=== PATIENT | male | born 1955 | race Caucasian/White ===

== ENCOUNTER 2019-06-12 07:08 | Emergency (ER) | payer MEDICAID ==
[~2019-06-12] VITALS: Ht 175.3 cm; Wt 68.0 kg
[2019-06-12 07:12] VITALS: BP 170/76
[2019-06-12] MEDS ORDERED: METHADONE HCL10 MG ORAL (07:12)
--- NOTE | 2019-06-12 07:12 | NUR ---
ED Nurse Note: Patient brought in by [facility] due to nausea and generalized weakness. Has a medical hx of HTN, hypercholesterolemia, lymphoma, stroke last 2013. As per patient he has been on methadone for almost a year and his PCP d/c his BP medications x7 months ago. Pt alert and oriented, verbally responsive. No SOB. Breathing even and unlabored. VSS.
--- NOTE | 2019-06-12 07:15 | NUR ---
ED Nurse Note: IV line established. Blood collected and sent to lab.
[2019-06-12] MEDS ORDERED: LIPITOR40 MG ORAL (07:36)
[2019-06-12 07:37] LABS: BASOPHILS % (AUTO) 0.8 % (0.0-2.0); EOSINOPHILS % (AUTO) 1.4 % (0.0-3.0); HEMATOCRIT 47.7 % (42.0-52.0); HEMOGLOBIN 15.4 G/DL (14.2-18.0); LYMPHOCYTES % (AUTO) 16.1 % (20.0-45.0); MEAN CORPUSCULAR VOLUME 84 FL (80-99); NEUTROPHILS % (AUTO) 76.7 % (45.0-75.0); PLATELET COUNT 172 K/UL (150-450); RED BLOOD COUNT 5.66 M/UL (4.70-6.10); RED CELL DISTRIBUTION WIDTH 15.4 % (11.6-14.8)
--- NOTE | 2019-06-12 07:39 | Emergency Room Report ---
History of Present Illness General Chief Complaint: Generalized Weakness Source: Patient Present Illness HPI This patient states that when he woke up early this morning he was feeling fatigued and nauseated. He states that he went to his usual methadone clinic appointment. 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 He states that he has been undergoing narcotic detox with the methadone clinic for about 1 year. He states there is been no recent changes in his methadone dosages. He states that he went to the methadone clinic this morning and did take his typical dose of methadone but began feeling worse while at the methadone clinic. He states he weaker and more fatigued and more nauseated while driving to the methadone clinic and while he was there. He states he did not vomit but he did dry heave. He states that he also felt lightheaded and that he could possibly "pass out." He denies pain. He did have a normal bowel movement this morning that was formed. He denies chest pain or shortness of breath. He denies recent illness. He denies fever or chills. He denies cough or congestion. He denies chest pain or shortness of breath. He denies dysuria or hematuria. He denies headache or neck pain. He admits to tobacco use but denies alcohol or illicit drug use. He has no other complaints. Allergies: Coded Allergies: No Known Allergies (Unverified , 06/12/19) Patient History Past Medical History: see triage record, HTN, CVA/TIA, other - Hx of lymphoma ( remission), HLP Social History: Reports: smoking; Denies: alcohol use, drug use Reviewed Nursing Documentation: PMH: Agreed; PSxH: Agreed Nursing Documentation-PM Past Medical History: No History, Except For Hx Hypertension: Yes Hx Cerebrovascular Accident: Yes - 2013 Review of Systems All Other Systems: negative except mentioned in HPI Physical Exam Vital Signs Date Time Temp Pulse Resp B/P (MAP) Pulse Ox O2 Delivery O2 Flow Rate FiO2 06/12/19 07:06 97.5 54 16 170/76 (107) 99 Room Air Sp02 EP Interpretation: reviewed, normal General Appearance: no apparent distress, alert, GCS 15, non-toxic Head: normocephalic, atraumatic Eyes: bilateral eye normal inspection, bilateral eye PERRL ENT: hearing grossly normal, normal pharynx, no angioedema, normal voice Neck: full range of motion, supple/symm/no masses Respiratory: chest non-tender, lungs clear, normal breath sounds, no respiratory distress, no retraction, no accessory muscle use, speaking full sentences Cardiovascular #1: regular rate, rhythm, no edema Gastrointestinal: normal bowel sounds, non tender, soft, non-distended, no guarding, no rebound Rectal: deferred Musculoskeletal: back normal, gait/station normal, normal range of motion, non- tender Neurologic: alert, oriented x3, responsive, motor strength/tone normal, sensory intact, speech normal Psychiatric: judgement/insight normal, memory normal, mood/affect normal, no suicidal/homicidal ideation Skin: no rash, normal color, warm/dry Medical Decision Making Diagnostic Impression: Primary Impression: Bradycardia Additional Impression: Symptomatic bradycardia ER Course This patient was found to have significant bradycardia. The patient's heart rate was in the low 40s during his ED course. Other work-up to include CBC, CMP , troponin and EKG showed no significant findings other than the bradycardia. Further discussion with the patient and he stated that he had never been told that he had bradycardia. He states he has not been on his blood pressure medications for approximately 6 months because his primary care physician took him off of his blood pressure medications. I offered to admit this patient for symptomatic bradycardia so that he could undergo further evaluation of his lightheadedness and weakness as there is a possibility he could have episodes of arrhythmia or profound bradycardia. However, the patient stated that he needed to go move his car from the methadone clinic and that this was of utmost importance to him. Patient is competent and alert and oriented x4 and able to make his own medical decisions. I did discuss the risks to include possible cardiac arrest. The patient indicated understanding and declined admission to the hospital. The patient left AGAINST MEDICAL ADVICE. Patient was educated that he could return after he deals with his situation with his car. He indicated understanding. Laboratory Tests Test 06/12/19 07:11 06/12/19 07:25 06/12/19 07:45 Urine Color Pale yellow Urine Appearance Clear Urine pH 7 (4.5-8.0) Urine Specific [place] 1.010 (1.005-1.035) Urine Protein Negative (NEGATIVE) Urine Glucose (UA) Negative (NEGATIVE) Urine Ketones Negative (NEGATIVE) Urine Blood Negative (NEGATIVE) Urine Nitrite Negative (NEGATIVE) Urine Bilirubin Negative (NEGATIVE) Urine Urobilinogen Normal MG/DL (0.0-1.0) Urine Leukocyte Esterase Negative (NEGATIVE) White Blood Count 10.0 K/UL (4.8-10.8) Red Blood Count 5.66 M/UL (4.70-6.10) Hemoglobin 15.4 G/DL (14.2-18.0) Hematocrit 47.7 % (42.0-52.0) Mean Corpuscular Volume 84 FL (80-99) Mean Corpuscular Hemoglobin 27.3 PG (27.0-31.0) Mean Corpuscular Hemoglobin Concent 32.4 G/DL (32.0-36.0) Red Cell Distribution Width 15.4 % (11.6-14.8) H Platelet Count 172 K/UL (150-450) Mean Platelet Volume 8.7 FL (6.5-10.1) Neutrophils (%) (Auto) 76.7 % (45.0-75.0) H Lymphocytes (%) (Auto) 16.1 % (20.0-45.0) L Monocytes (%) (Auto) 5.0 % (1.0-10.0) Eosinophils (%) (Auto) 1.4 % (0.0-3.0) Basophils (%) (Auto) 0.8 % (0.0-2.0) Sodium Level 138 MMOL/L (136-145) Potassium Level 3.7 MMOL/L (3.5-5.1) Chloride Level 101 MMOL/L (98-107) Carbon Dioxide Level 29 MMOL/L (21-32) Anion Gap 8 mmol/L (5-15) Blood Urea Nitrogen 16 mg/dL (7-18) Creatinine 0.8 MG/DL (0.55-1.30) Estimate Glomerular Filtration Rate > 60 mL/min (>60) Glucose Level 128 MG/DL (74-106) H Lactic Acid Level 1.20 mmol/L (0.4-2.0) Calcium Level 8.5 MG/DL (8.5-10.1) Magnesium Level 1.8 MG/DL (1.8-2.4) Total Bilirubin 0.5 MG/DL (0.2-1.0) Aspartate Amino Transferase (AST) 20 U/L (15-37) Alanine Aminotransferase (ALT) 23 U/L (12-78) Alkaline Phosphatase 128 U/L (46-116) H Total Creatine Kinase 101 U/L (26-308) Creatine Kinase MB 1.3 NG/ML (0.0-3.6) Creatine Kinase MB Relative Index 1.2 Troponin I 0.000 ng/mL (0.000-0.056) Total Protein 7.9 G/DL (6.4-8.2) Albumin 3.8 G/DL (3.4-5.0) Globulin 4.1 g/dL Albumin/Globulin Ratio 0.9 (1.0-2.7) L Urine Opiates Screen Pending Urine Barbiturates Screen Pending Phencyclidine (PCP) Screen Pending Urine Amphetamines Screen Pending Urine Benzodiazepines Screen Pending Urine Cocaine Screen Pending Urine Marijuana (THC) Screen Pending Microbiology Date/Time Source Procedure Growth Status 06/12/19 07:25 Nasal Nares - Final Complete 06/12/19 07:25 Nasal Nares - Final Complete EKG Diagnostic Results Rate: bradycardiac Rhythm: other - S.tammie ST Segments: no acute changes Rhythm Strip Diag. Results EP Interpretation: yes Rate: 40's Rhythm: NSR, no PVC's, no ectopy Chest X-Ray Diagnostic Results Chest X-Ray Diagnostic Results : Chest X-Ray Ordered: Yes # of Views/Limited/Complete: 1 View Indication: Other EP Interpretation: Yes Interpretation: no consolidation, no effusion, no pneumothorax, no acute cardiopulmonary disease Impression: No acute disease Electronically Signed by: Meena Julien DO Last Vital Signs Date Time Temp Pulse Resp B/P (MAP) Pulse Ox O2 Delivery O2 Flow Rate FiO2 06/12/19 07:12 97.5 48 16 170/76 99 Room Air Disposition: AGAINST MEDICAL ADVICE Condition: Stable Referrals: [facility],REFERR[facility] (PCP) Meena Julien DO Jun 12, 2019 07:39
--- NOTE | 2019-06-12 07:41 | NUR ---
ED Nurse Note: Xray done at bedside.
[2019-06-12] MEDS ORDERED: ASPIRIN81 MG ORAL (07:43)
[2019-06-12] MEDS ORDERED: PLAVIX75 MG ORAL (07:43)
[2019-06-12 07:49] LABS: ANION GAP 8 mmol/L (5-15); BLOOD UREA NITROGEN 16 mg/dL (7-18); CALCIUM 8.5 MG/DL (8.5-10.1); CARBON DIOXIDE 29 MMOL/L (21-32); CHLORIDE 101 MMOL/L (98-107); CREATININE 0.8 MG/DL (0.55-1.30); POTASSIUM 3.7 MMOL/L (3.5-5.1); SODIUM 138 MMOL/L (136-145)
[2019-06-12 07:59] LABS: APPEARANCE,URINE CLEAR; BILIRUBIN, URINE NEGATIVE (NEGATIVE); COLOR,URINE PALE YELLOW; GLUCOSE, URINE (UA) NEGATIVE (NEGATIVE); KETONES,URINE NEGATIVE (NEGATIVE); LEUKOCYTE ESTERASE ,URINE NEGATIVE (NEGATIVE); NITRITE,URINE NEGATIVE (NEGATIVE); PH,URINE 7 (4.5-8.0); PROTEIN,URINE NEGATIVE (NEGATIVE); UROBILINOGEN,URINE NORMAL MG/DL (0.0-1.0)
--- NOTE | 2019-06-12 08:00 | NUR ---
ED Nurse Note: Urine sent to lab.
[2019-06-12 08:02] LABS: ALANINE AMINOTRANSFERASE 23 U/L (12-78); ALBUMIN 3.8 G/DL (3.4-5.0); ALBUMIN/GLOBULIN RATIO 0.9 (1.0-2.7); ALKALINE PHOSPHATASE 128 U/L (46-116); ASPARTATE AMINO TRANSFERASE 20 U/L (15-37); BILIRUBIN,TOTAL 0.5 MG/DL (0.2-1.0); CKMB 1.3 NG/ML (0.0-3.6); CREATINE KINASE 101 U/L (26-308)
--- NOTE | 2019-06-12 09:27 | Diagnostic Imaging Report ---
Indication: Dyspnea Comparison: None A single view chest radiograph was obtained. Findings: No definite infiltrate or pulmonary vascular congestion identified. There is a left chest port present. The heart is enlarged. The aorta is mildly enlarged consistent with atherosclerotic vascular disease. The bones are osteopenic. Impression: No acute disease
[2019-06-12 09:39] VITALS: BP 152/70
[2019-06-12 09:55] VITALS: BP 152/70
--- NOTE | 2019-06-12 09:55 | NUR ---
AMA: Patient signed AMA form. As per patient, he doesnt want to stay or get transfer beacuse he doesnt want to lose his [place]. Stated that he feels better than before. Explained risk and benefits x3, verbalized understanding. DC papers were provided. IV line and ID band removed. All belongings was given to the patient. VSS.
--- NOTE | 2019-06-13 15:23 | Cardiology Report ---
APPROVED REPORT EKG Measurement Heart [id number] Sinus bradycardia Otherwise normal ECG
== END 2019-06-12 09:55 | disposition left against medical advice (07) ==
LOC: EDBD 07:08 → EMR 07:23 → EDBEDREQ 08:44 → CANBEDREQ 09:17 → EMR 09:55
DX: R00.1 Bradycardia, unspecified (principal); I10 Essential (primary) hypertension; Z86.73 Personal history of transient ischemic attack (TIA), and cerebral infarction without residual deficits; Z85.72 Personal history of non-Hodgkin lymphomas
CPT/HCPCS: 36415; 71045; 80053; 80307; 81003; 82550; 82553; 83605; 83735; 84484; 85025; 86710; 93005; 96360; Z7502; 99284